=== PATIENT | male | born 2005 | race Caucasian/White ===

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

== ENCOUNTER 2024-07-30 10:34 | Emergency (ER) | payer MEDICAID, SELFPAY ==
[2024-07-30 10:35] VITALS: BP 146/84; PULSE 87; RESP 16; TEMP 36.8; O2SAT 97
--- NOTE | 2024-07-30 10:48 | W.ED.GENAD ---
Discharge Plan Disposition Patient Disposition: Home Condition: Good Discharge Details Clinical Impression: Bites and stings, insect Primary Care Provider: Jaspal Post ED Provider: Anne Ortiz Home Meds and New Rx's Prescriptions: No Action No Known Home Meds Discharge Instructions Additional Instructions: Please wash your hands with antibacterial soap and water. Apply ice for 15 to 20 minutes at a time every hour to help with swelling. Elevate your hand above heart level. You may use Vic bandage as needed for discomfort/mild compression. You may use ibuprofen 600 mg every 8 hours as needed for discomfort. If you have itching at the area you may take some [id number] loratadine or cetirizine according to package instructions. Return to emergency care/urgent care if you notice any signs of infection such as increasing redness, swelling, pus drainage, streaking up arm, worsening pain, or if you have any new or concerning symptoms. Referrals: Jaspal Post [Primary Care Provider] - Discharge Data Discharge Date/Time-TO BE ENTERED AT DEPARTURE: 07/30/24 11:07 HPI General Date/Time Provider Initiated Documentation: 07/30/24 10:41. HPI Narrative: Josr is a 19-year-old male who presents to the emergency department today for evaluation of insect sting to his right hand. He reports he extended his hand over a wall and felt an insect bite/sting (this was not visual) resulting in swelling, redness, and numbness. Swelling has slightly subsided. No medication taken. Denies other rashes, itchiness, difficulty swallowing, difficulty breathing, chest pain, shortness of breath, wheezing, nausea, or vomiting. Feels shaky due to pain. Existing thumb issue unrelated to sting. Able to move wrist. No history of kidney or liver problems. Consumes 2 beers after work, denies history of GI bleed and says he can stop alcohol at any time. Right-hand dominant, frequently uses hands at work. Had a childhood heart murmur. Related Data Home Medications ?Medication ?Instructions ?Recorded ?Confirmed Unknown [No Known Home Meds] 05/09/17 09/26/21 Allergies Allergy/AdvReac Type Severity Reaction Status Date / Time No Known Allergies Allergy Unverified 09/26/21 17:43 General Stated Complaint: Allergic SANDI: 3 Exam Narrative Exam Narrative: General Appearance: Alert and oriented, no acute distress. Vital signs: Mild hypertension. HEENT: No facial swelling noted. Clear voice. Respiratory: Easy work of breathing, able to speak in full sentences Extremities: Mild erythema and swelling to hypothenar eminence of right hand. No foreign body visualized. No pain with palpation of metacarpals. Painless range of motion of left fingers. Skin: Warm and dry, no rash. Neurological: Sensation intact. Psychiatric: Normal. Course Vital Signs Vital signs: Vital Signs Temperature 36.8 C 07/30/24 10:35 Pulse 87 07/30/24 10:35 Respiratory Rate 16 07/30/24 10:35 Blood Pressure 146/84 H 07/30/24 10:35 Pulse Oximetry 97 07/30/24 10:35 Temperature 36.8 C 07/30/24 10:35 Temperature Source Oral 07/30/24 10:35 Pulse 87 07/30/24 10:35 Respiratory Rate 16 07/30/24 10:35 Blood Pressure 146/84 H 07/30/24 10:35 Pulse Oximetry 97 07/30/24 10:35 Medical Decision Making Initial Assessment: 19-year-old male with localized reaction to insect sting on the right hand. Mild erythema and swelling noted. No evidence of stinger in skin. Sensation intact, painless range of motion in fingers. Patient alert and oriented, in no acute distress, easy work of breathing. ED Course: - Advised to abstain from alcohol while taking the - Ibuprofen for pain. - Apply ice pack. - Rest. - Vic wrap for protection and compression. - Monitor for signs of infection: increased swelling, redness, pain, or spreading. Final Assessment: Localized reaction to insect sting, potentially from hornet or similar insect. Minimal likelihood of infection at this stage; no red flags concerning for acute osseous injury, systemic allergic reaction, neurovascular compromise, or other serious etiology requiring emergent diagnostic imaging or labs at this time treatment includes ibuprofen, ice pack, rest, and Vic wrap. Clinical Impression: - Localized reaction to insect sting. Disposition: - Discharge. - Follow-Up: Seek immediate medical attention if symptoms of infection occur. - Reviewed discharge instructions with patient, including symptomatic management. Work note provided. Patient voices agreement with plan of care MDM Components Evaluation: - Number of Differential Diagnoses or Management Options: Localized reaction to insect sting. - Amount and Complexity of Data Reviewed: Physical examination. - Risk of Complication and Morbidity or Mortality: Low risk of infection at this stage, monitor for signs of infection. Patient consented to the use of LIZETTE Quality:SDOH Health Related Social Needs: No Data to Display [facility] All Active Problems (Updated 07/30/24 @ 10:51 by Anne Carbajal) Bites and stings, insect (Acute) Social History Smoking/Tobacco Use Status: Current every day Tobacco Type: e-cigarettes Smoking risk assessment performed?: Yes Alcohol Intake: current Alcohol Intake frequency: a few times a month Alcohol type: hard liquor and other Drug use: Daily Substance use type: marijuana Do you feel safe at home: Yes Do you feel safe in your relationship?: Yes
[2024-07-30] MEDS: Ibuprofen 600 MG TAB PO (10:57)
[2024-07-30 11:05] VITALS: BP 141/108; PULSE 68; RESP 13; O2SAT 99
== END 2024-07-30 11:07 | disposition home or self-care (01) ==
LOC: ER 11:07
PROVIDERS: Emergency Provider Nurse Practitioner Family; PCP Internal Medicine
DX: S60.561A Insect bite (nonvenomous) of right hand, initial encounter (principal); F17.290 Nicotine dependence, other tobacco product, uncomplicated; W57.XXXA Bitten or stung by nonvenomous insect and other nonvenomous arthropods, initial encounter; Y93.89 Activity, other specified; Y92.89 Other specified places as the place of occurrence of the external cause
CPT/HCPCS: 99283

== ENCOUNTER 2024-08-03 11:41 | Emergency (ER) | payer SELFPAY ==
[2024-08-03 11:46] VITALS: BP 127/75; PULSE 88; RESP 10; TEMP 36.7; O2SAT 97
--- NOTE | 2024-08-03 13:30 | W.ED.GENAD ---
Discharge Plan Disposition Patient Disposition: Home Condition: Stable Discharge Details Clinical Impression: Abscess Primary Care Provider: Jaspal Post ED Provider: Cristóbal Johnson Home Meds and New Rx's Prescriptions: New sulfamethoxazole-trimethoprim [Bactrim DS] 800-160 mg tablet 1 tab PO BID 7 Days Qty: 14 0RF Discharge Instructions Instructions: Abscess Incision and Drainage (DC) Additional Instructions: Your your abscess was drained in the emergency department. Antibiotic has been prescribed for you to start taking twice daily. Continue to keep the area clean with soap and water. Warm compress can help encourage drainage. Return with any fevers worsening redness or other concerns HPI General Date/Time Provider Initiated Documentation: 08/03/24 12:07. Limitations to Documentation: no limitations. Information obtained by: patient. HPI Narrative: 19-year-old gentleman presents with 3 days of redness and swelling on his lower abdomen. He reports that this area is very painful. He reports some minor drainage. Denies any fever. Does report that he does have skin abscesses requiring an I&D previously. Related Data Home Medications ?Medication ?Instructions ?Recorded ?Confirmed sulfamethoxazole 800 1 tab PO BID 7 days #14 tabs 08/03/25 mg-trimethoprim 160 mg tablet (Bactrim DS) Previous Rx's ?Medication ?Instructions ?Recorded sulfamethoxazole 800 1 tab PO BID 7 days #14 tabs 08/03/24 mg-trimethoprim 160 mg tablet (Bactrim DS) Allergies Allergy/AdvReac Type Severity Reaction Status Date / Time No Known Allergies Allergy Unverified 08/03/24 11:51 General Stated Complaint: Cellulitis SANDI: 4 Exam Narrative Exam Narrative: Review of Systems: All systems reviewed & are unremarkable except as noted in HPI and below Well-developed, no acute distress NCAT lower midline abdomen with 2x2 area of erythema, induration and fluctuance, some surrounding cellulitis Course Vital Signs Vital signs: Vital Signs Temperature 36.7 C 08/03/24 11:46 Pulse 88 08/03/24 11:46 Respiratory Rate 10 L 08/03/24 11:46 Blood Pressure 127/75 08/03/24 11:46 Pulse Oximetry 97 08/03/24 11:46 Temperature 36.7 C 08/03/24 11:46 Temperature Source Oral 08/03/24 11:46 Pulse 88 08/03/24 11:46 Respiratory Rate 10 L 08/03/24 11:46 Blood Pressure 127/75 08/03/24 11:46 Blood Pressure Position Sitting 08/03/24 11:46 Pulse Oximetry 97 08/03/24 11:46 Oxygen Delivery Method Room Air 08/03/24 11:46 Oxygen Flow Rate 0 08/03/24 11:46 Procedure Abscess Drainage Location of Exam: Abdominal wall/left side. Complications: None Procedure Description Note: Area was cleaned with chlorhexidine and local anesthesia seizure with 1% lidocaine. Freezing spray was also used for an adjunct. 11 blade incision was made and the loculation performed with hemostat. Moderate amount of purulent drainage was obtained. Wound was left open and covered with a nonadherent dressing. Patient tolerated well. Medical Decision Making Emergent evaluation of skin lesion. Patient's skin examination is consistent with an abscess. Minimal cellulitis surrounding, no sick symptoms that are concerning for sepsis. An incision and drainage was performed at bedside which the patient tolerated well and a fair amount of purulent material was obtained. Home local wound management and instructions were provided to the patient. Patient will be started on Bactrim. Return precautions advised. Follow-up with PCP as needed. Quality:[facility] Health Related Social Needs: No Data to Display [facility] All Active Problems (Updated 08/03/24 @ 13:07 by Cristóbal Johnson MD) Abscess (Acute) Bites and stings, insect (Acute) Social History Smoking/Tobacco Use Status: Current every day Tobacco Type: e-cigarettes Smoking risk assessment performed?: Yes Alcohol Intake: current Alcohol Intake frequency: a few times a month Alcohol type: hard liquor and other Drug use: Daily Substance use type: marijuana Do you feel safe at home: Yes Do you feel safe in your relationship?: Yes
[2024-08-03] MEDS: Ibuprofen 600 MG TAB PO (13:37)
[2024-08-03 13:43] VITALS: BP 127/75; PULSE 88; RESP 10; TEMP 36.7; O2SAT 97
--- NOTE | 2024-08-12 10:45 | NUR.NOTE ---
Patient called asking about a referral to a provider in [place] where he has moved. Consulted with Dr. Retana and will send his ED visit information to Dr. Post for them to send a referral. Nursing Note:
== END 2024-08-03 13:44 | disposition home or self-care (01) ==
LOC: ER 13:33
PROVIDERS: Emergency Provider Emergency Medicine; PCP Internal Medicine
DX: L02.211 Cutaneous abscess of abdominal wall (principal); F17.290 Nicotine dependence, other tobacco product, uncomplicated
CPT/HCPCS: 10060; 99283

== ENCOUNTER 2024-11-09 18:31 | Outpatient (REF) | payer SELFPAY ==
[2024-11-11 11:19] LABS: GC Result Negative (Negative)
[2024-11-11 11:55] LABS: Chlamydia Result Positive (Negative)
== END 2024-11-09 18:32 | disposition home or self-care (01) ==
LOC: LBN 18:31
PROVIDERS: PCP Internal Medicine; Visit Provider Nurse Practitioner Family
DX: Z20.2 Contact with and (suspected) exposure to infections with a predominantly sexual mode of transmission (principal)
CPT/HCPCS: 87491; 87591